=== PATIENT | male | born 1970 | race Caucasian/White ===

== ENCOUNTER 2024-06-18 18:29 | Outpatient (REF) | payer MEDICARE, MEDICAID, SELFPAY ==
[2024-06-21 13:40] LABS: Measles IgG Antibody Negative (See Note); Mumps Antibody IgG Negative (See Note)
[2024-06-21 13:43] LABS: Rubella IgG Ab (UVM) Positive (See Note)
== END 2024-06-18 18:30 | disposition home or self-care (01) ==
LOC: NCHCN 18:29
PROVIDERS: Visit Provider Nurse Practitioner Family
DX: Z11.59 Encounter for screening for other viral diseases (principal); Z01.84 Encounter for antibody response examination
CPT/HCPCS: 86735; 86762; 86765

== ENCOUNTER 2024-11-09 12:05 | Outpatient (REF) | payer MEDICARE, MEDICAID, SELFPAY ==
[2024-11-09 16:28] LABS: ALT 13 U/L (16-63); AST 19 U/L (15-37); Albumin 3.3 g/dL (3.4-5.0); Alkaline Phosphatase 82 U/L (46-116); Anion Gap 7.2 mmol/L (3-11); BUN 9 mg/dL (7-18); Bilirubin, Total 0.32 mg/dL (0.2-1.0); CO2 30.8 mmol/L (21.0-32.0); CREATININE 1.2 mg/dL (0.70-1.30); Calcium 8.9 mg/dL (8.5-10.1); Calculated LDL 40 mg/dL (<100); Chloride 105 mmol/L (98-107); Cholesterol 135 mg/dL (<200); Estimated GFR 72.76 (mL/min/1.73m2); Glucose 106 mg/dL (74-106); HDL Cholesterol 48 mg/dL (40-60); Potassium 4.3 mmol/L (3.5-5.1); Sodium 143 mmol/L (136-145); TSH 2.53 uIU/mL (0.36-3.74); Total Protein 7.6 g/dL (6.4-8.2); Triglyceride 235 mg/dL (<150)
== END 2024-11-09 12:06 | disposition home or self-care (01) ==
LOC: NCHCN 12:05
PROVIDERS: Visit Provider Nurse Practitioner Family
DX: E03.9 Hypothyroidism, unspecified (principal)
CPT/HCPCS: 80053; 80061; 84443